=== PATIENT | male | born 1950 | race Caucasian/White ===

== ENCOUNTER 2021-05-21 14:34 | Emergency (ER) | payer MEDICARE, SELFPAY ==
[2021-05-21] VITALS (7 sets, daily range): BP systolic 118–149; BP diastolic 76–98; PULSE 107–158; RESP 18–24; TEMP 36.9; O2SAT 93–158; BMI 31.1
--- NOTE | ~2021-05-21 | XR_ITS ---
EXAMINATION: XR CHEST CLINICAL INFORMATION: Arrhythmia COMPARISON: None TECHNIQUE: Frontal view of the chest was obtained. FINDINGS: The lungs are well-expanded and clear. Heart size and pulmonary vascularity is normal. There is moderate spondylosis dorsal spine. No lytic process seen. XR/XR chest 1V IMPRESSION: Unremarkable examination.
--- NOTE | ~2021-05-21 | NM_ITS ---
EXAMINATION: NM LUNG IMAGE PERFUSION CLINICAL INFORMATION: Elevated d-dimer. COMPARISON: Chest x-ray 05/21/2021 TECHNIQUE: Perfusion lung scan imaging performed with 2.5 mCi of technetium 99m MAA. Multiple images obtained of the lungs. FINDINGS: There is homogeneous perfusion of the right and left lung. No perfusion defect. No evidence of pulmonary embolism. NM/NM pul perfusion IMPRESSION: Normal perfusion lung scan. No evidence of pulmonary embolism.
--- NOTE | 2021-05-21 15:02 | ECG_ITS ---
Test Reason : DYSRTHYMIA Blood Pressure : / mmHG Vent. Rate : 152 BPM Atrial Rate : 000 BPM P-R Int : 000 ms QRS Dur : 102 ms QT Int : 286 ms P-R-T Axes : 000 002 016 degrees QTc Int : 454 ms Supraventricular tachycardia When compared with ECG of 23-OCT-2015 14:50, Vent. rate has increased BY 57 BPM Supraventricular tachycardia has replaced Normal sinus rhythm Referred By: Generic ED Physician Electronically Signed By:ENRIQUETA ROLLINS MD
[2021-05-21 15:25] LABS: MANUAL DIFF FLAG NO
[2021-05-21 15:26] LABS: Basophils Percent Auto 0.3 % (0-2); Eosinophils Absolute Auto 0.1 X10*3/uL (0.0-0.4); Eosinophils Percent Auto 0.8 % (0-4); Hematocrit 45.5 % (42-52); Hemoglobin 14.4 g/dl (14.0-18.0); Imm Gran Abs Auto 0.02 X10*3/uL (0.00-0.03); Imm Gran Pct Auto 0.2 % (0.0-0.4); Lymphocytes Absolute Auto 2.5 X10*3/uL (1.2-4.9); Lymphocytes Percent Auto 26.6 % (20-40); Mean Corpuscular HGB Conc 31.6 g/dl (31.0-36.0); Mean Corpuscular Hemoglobin 30.4 pg (27.0-33.0); Mean Corpuscular Volume 96.2 fL (80-98); Mean Platelet Volume 9.3 fL (9.4-12.4); Monocytes Absolute Auto 1.1 X10*3/uL (0.1-1.2); Monocytes Percent Auto 11.6 % (2-11); Neutrophils Absolute Auto 5.6 X10*3/uL (2.0-8.3); Neutrophils Percent Auto 60.5 % (45-73); Platelet Count 199 X10*3/uL (160-400); Red Blood Count 4.73 X10*6/uL (4.60-5.80); Red Cell Distribution Width 12.9 % (11.0-16.0); White Blood Count 9.3 X10*3/uL (4.8-10.8)
--- NOTE | 2021-05-21 15:31 | PC.NURSE ---
Pt alert and oriented x3. Pt had a heart transplant done in 1998. He reports his baseline HR is 112s. Pt reports this morning his HR started running high 150s to 170s. While in ed the his hr high 150s, pt encouraged to do Valsalva maneuver and blow into a syringe which was effective. HR 112s. EKG shows ST. No med were given to lower hr. Pt in no apparent distress.
--- NOTE | 2021-05-21 15:35 | ECG_ITS ---
Test Reason : TACHYCARDIA Blood Pressure : / mmHG Vent. Rate : 112 BPM Atrial Rate : 112 BPM P-R Int : 168 ms QRS Dur : 084 ms QT Int : 332 ms P-R-T Axes : 029 -18 020 degrees QTc Int : 453 ms Sinus tachycardia Otherwise normal ECG When compared with ECG of 21-MAY-2021 15:12, Normal sinus rhythm has replaced Supraventricular tachycardia Referred By: Samm Gan Electronically Signed By:ENRIQUETA ROLLINS MD
[2021-05-21 15:39] LABS: Prothrombin Time 11.9 SEC (10.8-13.0)
[2021-05-21 15:42] LABS: Partial Thromboplastin Time 36.1 SEC (24.1-38.0)
[2021-05-21] MEDS: 0.9 % Sodium Chloride 1,000 ML 999 ML IV ×2 (15:45)
--- NOTE | 2021-05-21 15:47 | ED_ITS ---
HPI - Arrhythmia/Palpitations General Chief Complaint: Arrhythmia/Palpitations Stated Complaint: possible AFIB Time Seen by Provider: 05/21/21 15:22 Source: patient Mode of arrival: ambulatory Limitations: no limitations History of Present Illness HPI narrative: patient presents to ED for heart rate beating fast. Patient was sent by doctors from [facility] to be evaluated at the ER. Patient was checking his blood pressure and relies heart rate was between 150 and 170s. Patient states baseline heart rate is around 115. patient states heart rate of over 150 has never occurred before. Patient denies any chest pain or shortness of breath. Patient denies drinking any new any drinks or drug use. MD complaint: rapid heart beat Related Data Allergies Allergy/AdvReac Type Severity Reaction Status Date / Time amoxicillin [AMOXICILLIN] Allergy Intermediate HIVES Verified 05/21/21 14:54 Cephalosporins Allergy Intermediate HIVES Verified 05/21/21 14:54 [CEPHALOSPORINS] erythromycin base Allergy Intermediate HIVES Unverified 05/21/21 14:54 [ERYTHROMYCIN BASE] morphine [MORPHINE] Allergy Intermediate HIVES Verified 05/21/21 14:54 Sulfa (Sulfonamide Allergy Intermediate HIVES Verified 05/21/21 14:54 Antibiotics) [SULFA (SULFONAMIDE ANTIBIOTICS)] sulfamethoxazole Allergy Intermediate HIVES Verified 05/21/21 14:54 [From BACTRIM] trimethoprim [From BACTRIM] Allergy Intermediate HIVES Verified 05/21/21 14:54 BETALACTAMS Allergy Intermediate HIVES Uncoded 05/21/21 14:54 Review of Systems Review of Systems: Yes all other systems are reviewed and are negative Constitutional: Constitutional: Reports as per HPI and Reports no additional constitutional complaints Eyes: Eyes: Reports as per HPI and Reports no additional eye complaints ENT: Reports system reviewed and no additional complaints, except as documente d and Reports as per HPI Cardiovascular: Cardiovascular: Reports as per HPI and Reports no additional cardiovascular complaints Comments: Rapid heart rate Respiratory: Respiratory: Reports as per HPI and Reports no additional respiratory complaints Gastrointestinal: Gastrointestinal: Reports as per HPI and Reports no additional gastrointestinal complaints Genitourinary: Genitourinary: Reports no additional male genitourinary complaints and Reports as per HPI Musculoskeletal: Musculoskeletal: Reports no additional musculoskeletal comp laints and Reports as per HPI Neurologic: Reports system reviewed and no additional complaints, except as documented and Reports as per HPI Psychiatric: Psychiatric: Reports no additional psychiatric complaints and Reports as per HPI Endocrine: Endocrine: Reports no additional endocrine complaints and Reports as per HPI [facility] Past Medical History Medical History (Updated 05/21/21 @ 20:53 by DANIAL Hester) Chronic kidney disease, stage 3 Large B-cell lymphoma Stroke Surgical History (Updated 05/21/21 @ 15:01 by Madeline Jaime RN) S/P appendectomy S/P hernia surgery Status post heart transplant Social History Social History Patient Tobacco Use Status: Never used Tobacco Use of substances other than those prescribed or required for medical reasons: No Advance Directives: No Advance Directives Information Provided: No Physical Exam Vital Signs: Vital Signs: Last Vital Signs Temp 98.4 F 05/21/21 14:54 Pulse 115 H 05/21/21 20:48 Resp 24 H 05/21/21 20:48 BP 140/98 H 05/21/21 20:48 Pulse Ox 94 05/21/21 20:48 Body Mass Index 31.1 Const: General: cooperative, healthy appearing, comfortable, no acute distress, well developed, alert, awake and Physically active Orientation/consciousness: patient oriented x3 HENMT: Head: Yes normal to inspection, Yes No palpable skull fracture present, Yes normocephalic, Yes atraumatic and No abrasion Eyes: General: appearance normal, both eyes and all related structures Neck: Neck: Yes normal visual inspection, Yes full ROM, Yes no lymphadenopathy, Yes no meningeal signs, Yes trachea midline, Yes supple and No tender Chest: Chest palpation & inspection: normal inspection of the chest and normal palpation of entire chest wall Resp: Effort & Inspection: normal respiratory effort and able to speak in complete sentences Auscultation: clear to auscultation bilaterally Cardio: Jugular venous distension: no JVD Heart sounds: S1 normal heart sound present and S2 normal heart sound present GI: Inspection: Yes normal to inspection and No abdominal wall ecchymosis Palpation (GI): Soft to palpation, not firm, nontender, no guarding and not rigid : General: No CVA tenderness and Yes no CVA tenderness Back/Spine/Pelvis: Back: no CVA tenderness, No CVA tenderness and No back tenderness Skin: General skin exam: no rashes or lesions noted and elasticity normal Neuro: General: patient oriented x3, gait normal, no meningeal signs and CN's II-XI intact bilaterally Cranial nerves: Yes CN's II-XII intact bilaterally Extrem: General: Yes normal to inspection and Yes full ROM Psych: Appearance: grossly normal, well kempt and not disheveled Course Course Course Narrative: patient is in SVT. Reevaluation(s) Reevaluation #1: Initial EKG shows SVT. That has an was ordered. Patient performed vasovagal bear down maneuver and then tachycardia improved ( SVT resolved). Patient's heart rate now 115 on monitor. Repeat EKG shows sinus tach. Will do cardiac evaluation including thyroid and D-dimer. Patient given fluids. Once results come back will call doctors at [facility]. Time: 15:57 Reevaluation #2: Patient D-dimer elevated. Due to this was sent for chest CT to rule out PE. [facility] [place], but no one picked up. Will call again after chest CT result. Time: 17:06 Reevaluation #3: on the table for CT scan patient informed aircraft ordnance technician that his crystal inspector informing him he could not have IV contrast. Due to this V/Q scan was ordered. Patient heart rate presently 107. Patient is not tachypneic or or having any chest pain or shortness of breath. Time: 17:45 Additional Reevaluation(s): patient's chest x-ray negative for pneumonia. Patient's V/Q scan came back negative for PE. Spoke with [facility] cardi[facility] consultants fellow and he was informed of patient's history, physical exam, and diagnostics. He recommends patient be transferred directly to [facility] for futher testing. presently patient is stable. He was made aware of patient's 2nd troponin increase in by 50% although still negative. Dr. Melendrez Will accept the patient and tells transfer line were organized transportation for patient. 20:46 MDM - Arrhythmia/Palpitations MDM Narrative Medical decision making narrative: resolved SVT. Lab Data Result diagrams: 05/21/21 15:21 05/21/21 15:21 Labs: Lab Results 05/21/21 05/21/21 05/21/21 Range/Units 15:21 15:21 15:21 WBC 9.3 (4.8-10.8) X10*3/uL RBC 4.73 (4.60-5.80) X10*6/uL Hgb 14.4 (14.0-18.0) g/dl Hct 45.5 (42-52) % MCV 96.2 (80-98) fL MCH 30.4 (27.0-33.0) pg MCHC 31.6 (31.0-36.0) g/dl RDW 12.9 (11.0-16.0) % Plt Count 199 (160-400) X10*3/uL MPV 9.3 L (9.4-12.4) fL Immature Gran % (Auto) 0.2 (0.0-0.4) % Neut % (Auto) 60.5 (45-73) % Lymph % (Auto) 26.6 (20-40) % [place] % (Auto) 11.6 H (2-11) % Eos % (Auto) 0.8 (0-4) % Baso % (Auto) 0.3 (0-2) % Lymph # (Auto) 2.5 (1.2-4.9) X10*3/uL [place] # (Auto) 1.1 (0.1-1.2) X10*3/uL Eos # (Auto) 0.1 (0.0-0.4) X10*3/uL Baso # (Auto) 0.0 (0.0-0.2) X10*3/uL Abs Immat Gran (auto) 0.02 (0.00-0.03) X10*3/uL Absolute Neuts (auto) 5.6 (2.0-8.3) X10*3/uL Absolute Nucleated RBC 0.000 (0.0-0.012) X10*3/uL Nucleated RBC % (auto) 0.0 (0.0-0.2) /100WBC PT (10.8-13.0) SEC INR (0.9-1.1) APTT (24.1-38.0) SEC D-Dimer NG/ML Sodium 142 (135-145) mmol/L Potassium 4.1 (3.3-5.1) mmol/L Chloride 102 (96-108) mmol/L Carbon Dioxide 29 (22-29) mmol/L Anion Gap 15 (12-20) BUN 24 H (9-16) mg/dL Creatinine 1.63 H (0.5-1.4) mg/dL Estim Creat Clear Calc 42.4 Estimated GFR 42 Random Glucose 114 (60-115) mg/dL Calcium 9.5 (8.4-10.2) mg/dL Troponin I High Sens 5.4 (<3.5-35.0) ng/L TSH (0.32-4.0) uIU/mL 05/21/21 05/21/21 05/21/21 Range/Units 15:27 15:27 18:30 WBC (4.8-10.8) X10*3/uL RBC (4.60-5.80) X10*6/uL Hgb (14.0-18.0) g/dl Hct (42-52) % MCV (80-98) fL MCH (27.0-33.0) pg MCHC (31.0-36.0) g/dl RDW (11.0-16.0) % Plt Count (160-400) X10*3/uL MPV (9.4-12.4) fL Immature Gran % (Auto) (0.0-0.4) % Neut % (Auto) (45-73) % Lymph % (Auto) (20-40) % [place] % (Auto) (2-11) % Eos % (Auto) (0-4) % Baso % (Auto) (0-2) % Lymph # (Auto) (1.2-4.9) X10*3/uL [place] # (Auto) (0.1-1.2) X10*3/uL Eos # (Auto) (0.0-0.4) X10*3/uL Baso # (Auto) (0.0-0.2) X10*3/uL Abs Immat Gran (auto) (0.00-0.03) X10*3/uL Absolute Neuts (auto) (2.0-8.3) X10*3/uL Absolute Nucleated RBC (0.0-0.012) X10*3/uL Nucleated RBC % (auto) (0.0-0.2) /100WBC PT 11.9 (10.8-13.0) SEC INR 1.0 (0.9-1.1) APTT 36.1 (24.1-38.0) SEC D-Dimer 472 NG/ML Sodium (135-145) mmol/L Potassium (3.3-5.1) mmol/L Chloride (96-108) mmol/L Carbon Dioxide (22-29) mmol/L Anion Gap (12-20) BUN (9-16) mg/dL Creatinine (0.5-1.4) mg/dL Estim Creat Clear Calc Estimated GFR Random Glucose (60-115) mg/dL Calcium (8.4-10.2) mg/dL Troponin I High Sens 11.3 D (<3.5-35.0) ng/L TSH 2.42 (0.32-4.0) uIU/mL ECG Data Interpretation: EKG#1 super ventricular tachycardia, ventricular 152, QRS 102, QTC 454. Negative STEMI EKG # 2 sinus tachycardia. Ventricular rate 112. Pr interval 168. QRS 84. QTC 453. Negative STEMI Discharge Plan Discharge Clinical Impression: Supraventricular tachycardia Patient Disposition: [facility] Transfer Details: [facility]
[2021-05-21 15:49] LABS: D Dimer 472 NG/ML
[2021-05-21 15:55] LABS: Anion Gap 15 (12-20); Blood Urea Nitrogen 24 mg/dL (9-16); Calcium 9.5 mg/dL (8.4-10.2); Carbon Dioxide 29 mmol/L (22-29); Chloride 102 mmol/L (96-108); Creatinine Clr Calc Pharmacy 42.4; Estimated Glomerular Filt Rate 42; Glucose Random 114 mg/dL (60-115); Potassium 4.1 mmol/L (3.3-5.1); Sodium 142 mmol/L (135-145)
[2021-05-21 16:00] LABS: Troponin-I High Sensitivity 5.4 ng/L (<3.5-35.0)
[2021-05-21 16:17] LABS: TSH reflex Free T4 2.42 uIU/mL (0.32-4.0)
--- NOTE | 2021-05-21 17:49 | PC.NURSE ---
IF NEEDED, [facility] HEART FAILURE FELLOW PAGER : [phone]. NURSING STAFF [phone].
[2021-05-21 19:04] LABS: Troponin-I High Sensitivity 11.3 ng/L (<3.5-35.0)
--- NOTE | 2021-05-21 19:10 | PC.NURSE ---
PT TO SCAN IN STRETCHER IN NAD.
--- NOTE | 2021-05-21 19:15 | PC.NURSE ---
ASSUMED CARE OF PT. PT AWAITING TO GO FOR A PERFUSION SCAN. PT DENIES ANY COMPLAINTS. VS OBTAINED.
--- NOTE | 2021-05-21 19:30 | PC.NURSE ---
PT RETURNS TO ROOM. PT REQUESTING TO AMBULATE TO RESTROOM AND DENIES CP AT THIS TIME. PT RETURN TO ROOM AND RECONNECTED TO MONITOR WITH A HR 106, PT DENIES CP, PO 99% ON RA, PT WATCHING [place] B-BALL ON TV WITH AT BEDSIDE. PT AWAITING FOR PENDING RESULTS AND REQUESTING TO BE DISCHARGE TO HOME. VS OBTAINED AND WILL CONTINUE TO MONITOR PT.
[2021-05-21 21:12] LABS: COVID-19 Test Negative (Negative)
--- NOTE | 2021-05-21 21:51 | PC.NURSE ---
PT AWAITING FOR TRANSPORT TO [facility] FOR F/U. PT DENIES ANY COMPLAINTS AND REMAINS ON MONITOR IN NAD. PT WATCHING TV WITHOUT COMPLAINTS. WILL CONTINUE TO MONITOR PT.
--- NOTE | 2021-05-21 23:06 | PC.NURSE ---
REPORT TO TEAGAN WEBB AT [facility] IN [place]. PT AWAITING FOR TRANSPORT TO [facility] FOR FOLLOW UP CARE BY DR. DANIELS. PT DENIES ANY COMPLAINTS OR CP AT THIS TIME. WILL CONTINUE TO MONITOR PT.
--- NOTE | 2021-05-21 23:20 | PC.NURSE ---
EMS HERE FOR TRANSPORT TO [facility]. IV FLUSHES EASILY W/O RESISTANCE, SITE INTACT. PT DENIES CP/COMPLAINTS AT THIS TIME. REPORT GIVEN TO TEAGAN WEBB ON N6. PT LEFT HERE IN NAD.
== END 2021-05-21 23:28 | disposition short-term general hospital (02) ==
PROVIDERS: Physician Assistant; Emergency Provider Emergency Medicine; PCP Internal Medicine
DX: I47.1 Supraventricular tachycardia (principal); R79.1 Abnormal coagulation profile; N18.30 Chronic kidney disease, stage 3 unspecified; Z86.73 Personal history of transient ischemic attack (TIA), and cerebral infarction without residual deficits; Z20.822 Contact with and (suspected) exposure to COVID-19
CPT/HCPCS: 36415; 71045; 78580; 80048; 84443; 84484; 85025; 85379; 85610; 85730; 87635; 93005; 96361; 96374; 99285; A9540

== ENCOUNTER 2021-08-01 12:35 | Emergency (ER) | payer MEDICARE, SELFPAY ==
--- NOTE | ~2021-08-01 | CT_ITS ---
EXAMINATION: CT ABDOMEN AND PELVIS WITHOUT CONTRAST CLINICAL INFORMATION: Right lower quadrant pain. GI bleed. COMPARISON: CT abdomen/pelvis dated 03/10/2019. TECHNIQUE: Multidetector volumetric imaging was performed from the superior aspect of the liver through the pubic symphysis. Sagittal and coronal reformatted images were obtained on the technologist's workstation. This CT examination was performed using dose optimization techniques as appropriate, variously including the following: *Automated exposure control *Adjustment of mA and/or kV according to patient size (this includes techniques or standardized protocols for targeted exams where dose is matched to indication/reason for exam; i.e. extremities or head) *Use of iterative reconstruction technique DLP: 594 mGy-cm FINDINGS: LUNG BASES: Mild right-sided dependent atelectasis. LIVER, GALLBLADDER, AND BILIARY TREE: The liver is normal in size, shape, and attenuation. Stable subcentimeter right hepatic hypodensities, too small to characterize and likely representing cysts. No new focal hepatic lesion or biliary ductal dilatation is present. Redemonstration of cholelithiasis. No gallbladder wall thickening or inflammatory change to suggest acute cholecystitis. PANCREAS: Atrophic. No associated inflammatory change. SPLEEN: Anterior splenic calcification and adjacent splenule are unchanged. ADRENAL GLANDS: Unremarkable. KIDNEYS AND URETERS: Severe right renal atrophy with associated nonobstructing calcifications, unchanged. No left-sided renal stone. No ureteral stone. No hydronephrosis or hydroureter. BLADDER: Unremarkable. GASTROINTESTINAL TRACT: Sigmoid diverticulosis without evidence of acute diverticulitis. No bowel wall thickening or associated inflammatory change. [id number] stool burden, which could indicate a degree of constipation. Appendix not identified. No right lower quadrant inflammatory change. PERITONEAL CAVITY: No intra-abdominal free air or free fluid. No intra-abdominal mass or organized fluid collection/abscess formation. ABDOMINAL WALL: Postsurgical change consistent with prior inguinal hernia repairs. No new abdominal wall hernia. LYMPH NODES: No new or increasing lymphadenopathy. VASCULAR: No abdominal aortic dilatation. Scattered atherosclerotic calcifications. Unremarkable IVC. PELVIC VISCERA: Prostate calcifications and pelvic phleboliths are redemonstrated. OSSEOUS STRUCTURES: No concerning lytic or blastic osseous lesion. CT/CT abdomen pelvis wo con IMPRESSION: 1. Diverticulosis without evidence of acute diverticulitis. [id number] stool burden, which could indicate a degree of constipation. 2. Right renal atrophy and nonobstructing calcifications, unchanged. No new renal or ureteral stone. No hydronephrosis or hydroureter. 3. Additional chronic findings are unchanged.
[2021-08-01 12:45] VITALS: BP 129/87; PULSE 109; RESP 16; TEMP 37.1; O2SAT 98; BMI 29.9
[2021-08-01 14:17] LABS: MANUAL DIFF FLAG NO
[2021-08-01 14:19] LABS: Basophils Percent Auto 0.3 % (0-2); Eosinophils Absolute Auto 0.1 X10*3/uL (0.0-0.4); Eosinophils Percent Auto 0.5 % (0-4); Hematocrit 44.1 % (42-52); Hemoglobin 14.2 g/dl (14.0-18.0); Imm Gran Abs Auto 0.04 X10*3/uL (0.00-0.03); Imm Gran Pct Auto 0.4 % (0.0-0.4); Lymphocytes Absolute Auto 2.5 X10*3/uL (1.2-4.9); Lymphocytes Percent Auto 24.6 % (20-40); Mean Corpuscular HGB Conc 32.2 g/dl (31.0-36.0); Mean Corpuscular Hemoglobin 30.9 pg (27.0-33.0); Mean Corpuscular Volume 96.1 fL (80-98); Mean Platelet Volume 9.1 fL (9.4-12.4); Monocytes Absolute Auto 0.4 X10*3/uL (0.1-1.2); Monocytes Percent Auto 4.2 % (2-11); Neutrophils Absolute Auto 7.1 X10*3/uL (2.0-8.3); Platelet Count 185 X10*3/uL (160-400); Red Blood Count 4.59 X10*6/uL (4.60-5.80); White Blood Count 10.1 X10*3/uL (4.8-10.8)
[2021-08-01 14:35] LABS: Alanine Aminotransferase 18 U/L (0-40); Albumin Level 4.4 g/dL (3.5-5.0); Alkaline Phosphatase 117 U/L (39-117); Anion Gap 15 (12-20); Aspartate Amino Transferase 23 U/L (5-37); Blood Urea Nitrogen 26 mg/dL (9-16); Carbon Dioxide 30 mmol/L (22-29); Chloride 102 mmol/L (96-108); Creatinine Clr Calc Pharmacy 35.7; Estimated Glomerular Filt Rate 35; Glucose Random 129 mg/dL (60-115); Potassium 5.2 mmol/L (3.3-5.1); Sodium 142 mmol/L (135-145); Total Protein 7.3 g/dL (6.5-8.0)
--- NOTE | 2021-08-01 16:09 | ED_ITS ---
HPI - Male Genitourinary General Chief complaint: Urogenital-Male Stated complaint: BLOOD IN URINE Time Seen by Provider: 08/01/21 16:09 Source: patient Mode of arrival: ambulatory Limitations: no limitations Related Data Allergies Allergy/AdvReac Type Severity Reaction Status Date / Time amoxicillin [AMOXICILLIN] Allergy Intermediate HIVES Verified 05/21/21 14:54 Cephalosporins Allergy Intermediate HIVES Verified 05/21/21 14:54 [CEPHALOSPORINS] erythromycin base Allergy Intermediate HIVES Unverified 05/21/21 14:54 [ERYTHROMYCIN BASE] morphine [MORPHINE] Allergy Intermediate HIVES Verified 05/21/21 14:54 Sulfa (Sulfonamide Allergy Intermediate HIVES Verified 05/21/21 14:54 Antibiotics) [SULFA (SULFONAMIDE ANTIBIOTICS)] sulfamethoxazole Allergy Intermediate HIVES Verified 05/21/21 14:54 [From BACTRIM] trimethoprim [From BACTRIM] Allergy Intermediate HIVES Verified 05/21/21 14:54 BETALACTAMS Allergy Intermediate HIVES Uncoded 05/21/21 14:54 [facility] Past Medical History Medical History (Updated 05/22/21 @ 00:01 by Laurent Day) Chronic kidney disease, stage 3 Large B-cell lymphoma Stroke Surgical History (Updated 05/21/21 @ 15:01 by Madeline Jaime RN) S/P appendectomy S/P hernia surgery Status post heart transplant Social History Social History Patient Tobacco Use Status: Never used Tobacco Advance Directives: Yes Advance Directives Information Provided: Yes Advance Directives on File: No Physical Exam Vital Signs: Vital Signs: Last Vital Signs Temp 98.7 F 08/01/21 12:45 Pulse 109 H 08/01/21 12:45 Resp 16 08/01/21 12:45 BP 129/87 08/01/21 12:45 Pulse Ox 98 08/01/21 12:45 Body Mass Index 29.9 MDM - Male Genitourinary Lab Data Result diagrams: 08/01/21 14:13 08/01/21 14:13 Labs: Lab Results 08/01/21 08/01/21 Range/Units 14:13 14:13 WBC 10.1 (4.8-10.8) X10*3/uL RBC 4.59 L (4.60-5.80) X10*6/uL Hgb 14.2 (14.0-18.0) g/dl Hct 44.1 (42-52) % MCV 96.1 (80-98) fL MCH 30.9 (27.0-33.0) pg MCHC 32.2 (31.0-36.0) g/dl RDW 13.0 (11.0-16.0) % Plt Count 185 (160-400) X10*3/uL MPV 9.1 L (9.4-12.4) fL Immature Gran % (Auto) 0.4 (0.0-0.4) % Neut % (Auto) 70.0 (45-73) % Lymph % (Auto) 24.6 (20-40) % [place] % (Auto) 4.2 (2-11) % Eos % (Auto) 0.5 (0-4) % Baso % (Auto) 0.3 (0-2) % Lymph # (Auto) 2.5 (1.2-4.9) X10*3/uL [place] # (Auto) 0.4 (0.1-1.2) X10*3/uL Eos # (Auto) 0.1 (0.0-0.4) X10*3/uL Baso # (Auto) 0.0 (0.0-0.2) X10*3/uL Abs Immat Gran (auto) 0.04 H (0.00-0.03) X10*3/uL Absolute Neuts (auto) 7.1 (2.0-8.3) X10*3/uL Absolute Nucleated RBC 0.000 (0.0-0.012) X10*3/uL Nucleated RBC % (auto) 0.0 (0.0-0.2) /100WBC Sodium 142 (135-145) mmol/L Potassium 5.2 H D (3.3-5.1) mmol/L Chloride 102 (96-108) mmol/L Carbon Dioxide 30 H (22-29) mmol/L Anion Gap 15 (12-20) BUN 26 H (9-16) mg/dL Creatinine 1.90 H (0.5-1.4) mg/dL Estim Creat Clear Calc 35.7 Estimated GFR 35 Random Glucose 129 H (60-115) mg/dL Calcium 10.0 (8.4-10.2) mg/dL Total Bilirubin 1.0 (0.0-1.0) mg/dL AST 23 (5-37) U/L ALT 18 (0-40) U/L Alkaline Phosphatase 117 (39-117) U/L Total Protein 7.3 (6.5-8.0) g/dL Albumin 4.4 (3.5-5.0) g/dL
--- NOTE | 2021-08-01 16:20 | ED_ITS ---
HPI - GI Bleed General Chief complaint: Urogenital-Male Stated complaint: BLOOD IN URINE Time Seen by Provider: 08/01/21 16:09 Source: patient Mode of arrival: ambulatory Limitations: no limitations History of Present Illness complaint: gross hematochezia Onset (ago): day(s) (one bout yesterday morning) Pain Consistency: intermittent Severity: mild Relieving factors: none Exacerbating factors: none Context: other (no AC therapy, has had RLQ intermittent ache x 2 weeks yesterday thought he was having a BM and just saw bright red blood in bowl, no BM or episodes today but saw blood on toilet paper when he wiped today) Associated symptoms: abdominal pain Treatments Prior to Arrival: none Related Data Home Medications Medication Instructions Recorded Confirmed amlodipine 10 mg tablet 1 tab PO DAILY 08/01/21 atorvastatin 20 mg tablet 1 tab PO DAILY 08/01/21 cholecalciferol (vitamin D3) 10 1 tab PO DAILY 08/01/21 mcg (400 unit) tablet (Vitamin D3) cyclosporine modified 25 mg 4 cap PO BID 08/01/21 capsule (Gengraf) metoprolol succinate 25 mg 1 tab PO DAILY 08/01/21 tablet,extended release 24 hr prednisone 5 mg tablet 1 tab PO DAILY 08/01/21 tramadol 50 mg tablet 1 tab PO DAILY PRN 08/01/21 Allergies Allergy/AdvReac Type Severity Reaction Status Date / Time amoxicillin [AMOXICILLIN] Allergy Intermediate HIVES Verified 05/21/21 14:54 Cephalosporins Allergy Intermediate HIVES Verified 05/21/21 14:54 [CEPHALOSPORINS] erythromycin base Allergy Intermediate HIVES Unverified 05/21/21 14:54 [ERYTHROMYCIN BASE] morphine [MORPHINE] Allergy Intermediate HIVES Verified 05/21/21 14:54 Sulfa (Sulfonamide Allergy Intermediate HIVES Verified 05/21/21 14:54 Antibiotics) [SULFA (SULFONAMIDE ANTIBIOTICS)] sulfamethoxazole Allergy Intermediate HIVES Verified 05/21/21 14:54 [From BACTRIM] trimethoprim [From BACTRIM] Allergy Intermediate HIVES Verified 05/21/21 14:54 BETALACTAMS Allergy Intermediate HIVES Uncoded 05/21/21 14:54 Review of Systems Review of Systems: Constitutional : No Weight loss, No Fever, No Chills ENT/Mouth : No sore throat, No Rhinorrhea Eyes: No Swelling, No Redness Cardiovascular : No Chest Pain, No SOB, NoEdema Respiratory : No Cough, No Sputum, No Wheezing Gastrointestinal : no Nausea, no Vomiting, no Diarrhea, positive abdominal Pain, pos Hematochezia, No Melena Genitourinary : No Dysuria, No Urinary Frequency, No Hematuria, No Urgency Musculoskeletal : No joint pain, No Myalgias, No Joint Swelling Skin : No Skin Lesions, No rash Neuro : No Weakness, No Numbness, No Dizziness, No Headache Psych : No Anxiety/Panic, No Depression Heme/Lymph: No Bruising, No Lymphadenopathy Endocrine : No Polyuria, No Polydipsia All other systems reviewed and are negative. [facility] Past Medical History Attestation statement: The following information was validated with the patient. Medical History (Updated 08/01/21 @ 17:39 by Brenda Adame DO) Chronic kidney disease, stage 3 Heart transplant recipient Large B-cell lymphoma Stroke Surgical History S/P appendectomy S/P hernia surgery Status post heart transplant Social History Social History Patient Tobacco Use Status: Never used Tobacco Advance Directives: Yes Advance Directives Information Provided: Yes Advance Directives on File: No Physical Exam Vital Signs: Vital Signs: Last Vital Signs Temp 98.7 F 08/01/21 12:45 Pulse 109 H 08/01/21 12:45 Resp 16 08/01/21 12:45 BP 129/87 08/01/21 12:45 Pulse Ox 98 08/01/21 12:45 Body Mass Index 29.9 Appearance: Alert. Oriented X3. No acute distress. Eyes: Pupils equal, round and reactive to light. ENT: Pharynx normal. Neck: Normal inspection. Neck supple. CVS: Normal heart rate and rhythm. Pulses normal. Respiratory: No respiratory distress. Breath sounds normal. Abdomen: Soft and mild RLQ ttp no rebound or guarding Rectal: brown stool, ext and internal hemorrhoids noted, no blood seen Skin: Skin warm and dry. Normal skin color. Normal skin turgor. Extremities: No lower extremity edema. No calf ttp Neuro: Oriented X 3. No motor deficit. No sensory deficit. Course Course Course Narrative: signed out to Karin PATIENT SUPPORT ASSOCIATE pending workup MDM - GI Bleed MDM Narrative Medical decision making narrative: 70 yo male s/p heart transplant, CKD, hx of lymphoma here with one bout of blood in toilet yesterday unsure if he had BM - today no bouts but has had RLQ pain for over 1 week - at this time labs, guiac, CT scan with oral contrast for mass/colitis, dispo per results and findings. not on AC therapy Lab Data Result diagrams: 08/01/21 14:13 08/01/21 14:13 Labs: Lab Results 08/01/21 08/01/21 08/01/21 Range/Units 14:13 14:13 17:19 WBC 10.1 (4.8-10.8) X10*3/uL RBC 4.59 L (4.60-5.80) X10*6/uL Hgb 14.2 (14.0-18.0) g/dl Hct 44.1 (42-52) % MCV 96.1 (80-98) fL MCH 30.9 (27.0-33.0) pg MCHC 32.2 (31.0-36.0) g/dl RDW 13.0 (11.0-16.0) % Plt Count 185 (160-400) X10*3/uL MPV 9.1 L (9.4-12.4) fL Immature Gran % (Auto) 0.4 (0.0-0.4) % Neut % (Auto) 70.0 (45-73) % Lymph % (Auto) 24.6 (20-40) % [place] % (Auto) 4.2 (2-11) % Eos % (Auto) 0.5 (0-4) % Baso % (Auto) 0.3 (0-2) % Lymph # (Auto) 2.5 (1.2-4.9) X10*3/uL [place] # (Auto) 0.4 (0.1-1.2) X10*3/uL Eos # (Auto) 0.1 (0.0-0.4) X10*3/uL Baso # (Auto) 0.0 (0.0-0.2) X10*3/uL Abs Immat Gran (auto) 0.04 H (0.00-0.03) X10*3/uL Absolute Neuts (auto) 7.1 (2.0-8.3) X10*3/uL Absolute Nucleated RBC 0.000 (0.0-0.012) X10*3/uL Nucleated RBC % (auto) 0.0 (0.0-0.2) /100WBC Sodium 142 (135-145) mmol/L Potassium 5.2 H D (3.3-5.1) mmol/L Chloride 102 (96-108) mmol/L Carbon Dioxide 30 H (22-29) mmol/L Anion Gap 15 (12-20) BUN 26 H (9-16) mg/dL Creatinine 1.90 H (0.5-1.4) mg/dL Estim Creat Clear Calc 35.7 Estimated GFR 35 Random Glucose 129 H (60-115) mg/dL Calcium 10.0 (8.4-10.2) mg/dL Total Bilirubin 1.0 (0.0-1.0) mg/dL AST 23 (5-37) U/L ALT 18 (0-40) U/L Alkaline Phosphatase 117 (39-117) U/L Total Protein 7.3 (6.5-8.0) g/dL Albumin 4.4 (3.5-5.0) g/dL Urine Color YELLOW Urine Appearance CLEAR Urine pH 6.0 (5.0-8.0) Ur Specific [place] 1.010 (1.005-1.025) Urine Protein TRACE (NEG-TRACE) MG/DL Urine Glucose (UA) NEG (NEG) MG/DL Urine Ketones NEG (NEG) MG/DL Urine Blood NEG (NEG) Urine Nitrite NEG (NEG) Ur Leukocyte Esterase NEG (NEG) Discharge Plan Discharge Clinical Impression: Abdominal pain Prescriptions: No Action atorvastatin 20 mg tablet 1 tab PO DAILY RF: 0 cyclosporine modified [Gengraf] 25 mg capsule 4 cap PO BID RF: 0 prednisone 5 mg tablet 1 tab PO DAILY RF: 0 tramadol 50 mg tablet 1 tab PO DAILY PRN (Reason: pain) RF: 0 amlodipine 10 mg tablet 1 tab PO DAILY RF: 0 metoprolol succinate 25 mg tablet extended release 24 hr 1 tab PO DAILY RF: 0 cholecalciferol (vitamin D3) [Vitamin D3] 10 mcg (400 unit) tablet 1 tab PO DAILY RF: 0
[2021-08-01 17:29] LABS: Appearance Urine CLEAR; Color Urine YELLOW; Glucose Urine UA NEG (NEG); Leukocyte Esterase Urine NEG (NEG); Nitrite Urine NEG (NEG); Urine Blood NEG (NEG); Urine Ketones NEG (NEG); Urine Protein TRACE MG/DL (NEG-TRACE)
[2021-08-01 17:43] LABS: IDNOW Serial# 9DD0AD1C
[2021-08-01 17:44] LABS: COVID-19 Test Negative (Negative)
[2021-08-01 18:10] LABS: Lipase 26 U/L (8-78)
[2021-08-01 18:12] LABS: Prothrombin Time 11.3 SEC (9.9-13.0)
[2021-08-01 18:14] LABS: Partial Thromboplastin Time 38.4 SEC (24.1-38.0)
[2021-08-01 18:14] LABS: OBS Int Ctl Valid YES; OBS1 POSITIVE (NEGATIVE)
[2021-08-01 18:15] LABS: Lactic Acid 1.7 mmol/L (0.5-2.0)
[2021-08-01 18:31] LABS: TSH reflex Free T4 1.01 uIU/mL (0.32-4.0)
[2021-08-01 18:54] VITALS: BP 139/86; PULSE 100; RESP 16; TEMP 36.5; O2SAT 94
[2021-08-01] MEDS: Barium Sulfate Oral (Berry) 450 ML ORAL.SUSP PO ×2 (19:40→19:41)
[2021-08-01 21:01] VITALS: BP 133/99; PULSE 102; RESP 16; TEMP 36.8; O2SAT 94
== END 2021-08-01 21:59 | disposition home or self-care (01) ==
PROVIDERS: Emergency Provider Emergency Medicine; PCP Internal Medicine
DX: R10.9 Unspecified abdominal pain (principal); Z20.822 Contact with and (suspected) exposure to COVID-19; N18.30 Chronic kidney disease, stage 3 unspecified; Z94.1 Heart transplant status; Z86.73 Personal history of transient ischemic attack (TIA), and cerebral infarction without residual deficits
CPT/HCPCS: 36415; 74176; 80053; 81003; 82272; 83605; 83690; 83735; 84443; 85025; 85610; 85730; 87635; 99284